=== PATIENT | male | born 1995 | race Caucasian/White ===

== ENCOUNTER 2017-10-02 21:54 | Emergency (ER) | payer BC ==
[2017-10-02 22:04] VITALS: BP 129/69; PULSE 70; RESP 15; TEMP 97.8; O2SAT 99
[2017-10-02] MEDS ORDERED: METH27 PO (22:04)
[2017-10-02] MEDS ORDERED: ACETAMINOPHEN/HYDROcodone 325 MG/5 MG TAB PO ONE (22:30)
[2017-10-02] MEDS ORDERED: AMOXICILLIN (TRIHYDRATE) 500 MG CAP PO ONE (22:30)
--- NOTE | 2017-10-02 22:31 | PD ---
HPI Chief Complaint: Facial Pain or Swelling Time Seen by Provider: 22:19 Travel History International Travel<30 days: No Contact w/Intl Traveler<30days: No Traveled to known affect area: No History of Present Illness HPI 21-year-old white male presents emergency department for evaluation of a facial injury which occurred while playing baseball today. Patient states that he ran into another player striking head the head. He sustained a bloody nose and injury to his left thigh. He denies syncope. No dental injury. No malocclusion. No neck pain. He does report some stiffness in his back. Pain is mild to moderate. Exacerbated by direct trauma but no alleviating factors. PFSH Past Medical History ADHD: Yes Diabetes: No Patient Takes Glucophage: No Diminished Hearing: No Immunizations Current: Yes Tetanus Vaccination: < 5 Years Influenza Vaccination: No Past Surgical History Narrative Surgical Right fourth metacarpal fracture with ORIF Social History Alcohol Use: Yes (OCCASIONAL) Tobacco Use: Yes Substance Use: No Allergies-Medications (Allergen,Severity, Reaction): Coded Allergies: No Known Allergies (Unverified , 10/02/17) Reported Meds & Prescriptions Reported Meds & Active Scripts Active [place] (Hydrocodone-Acetaminophen) 5 Mg-325 Mg Tab 1 Tab PO Q6H PRN 3 Days Amoxicillin 500 Mg Cap 500 Mg PO TID 10 Days Reported Concerta (Methylphenidate HCl) 27 Mg Tiffany 27 Mg PO DAILY Review of Systems General / Constitutional: No: Fever Eyes: No: Visual changes HENT: Positive: Nosebleed, No: Headaches, Neck Stiffness, Neck Pain, Gingival Bleeding, Dental Difficulties Cardiovascular: No: Chest Pain or Discomfort Respiratory: No: Shortness of Breath Gastrointestinal: No: Abdominal Pain Genitourinary: No: Dysuria Musculoskeletal: Positive: Pain (Left thigh), No: Arthralgias, Limited ROM, Weakness Skin: No Rash Neurologic: Positive: Headache, No: Weakness, Dizziness, Syncope, Change in Mentation, Paresthesia, Seizures, Sensory Disturbance Psychiatric: No: Depression Endocrine: No: Polydipsia Hematologic/Lymphatic: No: Easy Bruising Physical Exam Narrative GENERAL: Well-developed, well-nourished in no apparent distress. Nontoxic appearing. HEAD: Patient has swelling to the nasal bridge with tenderness. There is an abrasion to the nasal bridge. Evidence of epistaxis in both nostrils. No septal hematoma. No septal deviation. ENT: Nose clear. Throat without erythema, tonsillar hypertrophy or exudate. Uvula midline. Airway patent. NECK: Trachea midline. Supple, nontender, moves head freely. No central bony tenderness or spasm. CARDIOVASCULAR: Regular rate and rhythm without murmurs, gallops, or rubs. RESPIRATORY: Clear to auscultation. Breath sounds equal bilaterally. No wheezes , rales, or rhonchi. GASTROINTESTINAL: Abdomen soft, non-tender, nondistended. No hepato-splenomegaly , or palpable masses. No guarding. EXTREMITIES: No clubbing, cyanosis, or edema. No joint tenderness. Patient has soft tissue tenderness to left anterior thigh. BACK: Nontender without deformity. No flank tenderness. NEUROLOGICAL: Awake, alert and oriented x 3 .Cranial nerves grossly intact. Motor and sensory grossly within normal limits. Normal speech. Normal gait. Data Data Last Documented VS Vital Signs Date Time Temp Pulse Resp B/P (MAP) Pulse Ox O2 Delivery O2 Flow Rate FiO2 10/02/17 22:04 97.8 70 15 129/69 (89) [address] Facial Bones W/O Iv Cont (10/02/17 22:26) Amoxicillin (Trimox) (10/02/17 22:30) Acetamin-Hydrocod 325-5 Mg ([place] 5-325 (10/02/17 22:30) Ice/Cold Pack (10/02/17 22:31) Ed Discharge Order (10/02/17 23:55) [facility] Medical Decision Making Medical Screen Exam Complete: Yes Emergency Medical Condition: Yes Medical Record Reviewed: Yes Interpretation(s) Last [address] 10/02/17 3890 Signed Impressions: Service Date/Time: Monday, October 02, 2017 22:57 - CONCLUSION: 1. Subtle left-sided nasal bone fracture with overlying soft tissue swelling. 2. The orbits are intact. Richard Olmedo MD Differential Diagnosis MDM: High Differential diagnoses: Fracture, sprain, strain, dislocation, contusion, neurovascular injury Narrative Course Patient is given amoxicillin 500 mg p.o. and [place] [address] scan of the facial bones. Diagnosis Primary Impression: Nasal fracture Qualified Codes: S02.2XXA - Fracture of nasal bones, initial encounter for closed fracture Patient Instructions: General Instructions Additional Instructions: Rest. Increase fluids. No nose blowing. Afrin nasal spray for the next few days only. Amoxicillin. Lortab for severe pain. Follow-up with a primary care doctor in 1 week. Return to the ER if any problems. No contact sports for 2 weeks. Med/Other Pt SpecificInfo: Prescription(s) given Scripts Hydrocodone-Acetaminophen ([place]) 5 Mg-325 Mg Tab 1 TAB PO Q6H Y for PAIN for 3 Days, #12 TAB 0 Refills Prov: Chong Gil MD 10/02/17 Amoxicillin (Amoxicillin) 500 Mg Cap 500 MG PO TID for Infection for 10 Days, CAP 0 Refills Prov: Chong Gil MD 10/02/17 Disposition: 01 DISCHARGE HOME Condition: Stable [place] No October 02, 2017 22:31
--- NOTE | 2017-10-02 23:13 | RADRPT ---
EXAM DATE/TIME: 10/02/2017 22:57 [facility] COMPARISON: No previous studies available for comparison. INDICATIONS : Trauma. Sports injury. Possible broken nose. RADIATION DOSE: 55.29 CTDIvol (mGy) MEDICAL HISTORY : None SURGICAL HISTORY : None. ENCOUNTER: Initial ACUITY: 1 day PAIN SCORE: 8/10 LOCATION: facial nose TECHNIQUE: Volumetric scanning of the facial bones was performed. Using automated exposure control and adjustme nt of the mA and/or kV according to patient size, radiation dose was kept as low as reasonably achiev able to obtain optimal diagnostic quality images. DICOM format image data is available electronicall y for review and comparison. FINDINGS: ORBITS: The orbital and infraorbital osseous structures are intact. The retroconal structures have a normal configuration. No radiopaque foreign bodies are seen. NASAL BONE: There is a subtle nondisplaced fracture involving the left nasal bone with overlying soft tissue swel ling. ZYGOMATIC ARCHES: Symmetric without evidence of fracture. SINUSES: The maxillary, ethmoid and frontal sinuses are intact. No air-fluid levels seen. NASAL CAVITY: The nasal septum is intact and midline. The lacrimal ducts are intact. SOFT TISSUES: No radiopaque foreign bodies seen. There is soft tissue swelling on the left side of the nose and max illa. INTRACRANIAL: No intracranial air seen. CRIBIFORM PLATE: Grossly intact. CONCLUSION: 1. Subtle left-sided nasal bone fracture with overlying soft tissue swelling. 2. The orbits are intact. Richard Olmedo MD on October 02, 2017 at 23:09 Board Certified Radiologist. This report was verified electronically.
[2017-10-02] MEDS ORDERED: NORC5TAB PO (23:56)
[2017-10-02] MEDS ORDERED: AMOX500C PO (23:56)
[2017-10-03 00:24] VITALS: RESP 16
== END 2017-10-03 00:27 | disposition home or self-care (01) ==
LOC: NEPD 21:54
DX: S02.2XXA Fracture of nasal bones, initial encounter for closed fracture (principal); F90.9 Attention-deficit hyperactivity disorder, unspecified type; W51.XXXA Accidental striking against or bumped into by another person, initial encounter; Y93.64 Activity, baseball
CPT/HCPCS: 70486; 99283